=== PATIENT | female | born 1990 | race Two or more races ===

== ENCOUNTER 2018-05-09 11:52 | Emergency (ER) | payer OTHER ==
[~2018-05-09] VITALS: Ht 160 cm; Wt 84.0 kg
[2018-05-09] MEDS ORDERED: KETOROLAC 30 MG/1 ML ONE (12:27)
[2018-05-09] MEDS ORDERED: DIAZEPAM 5 MG TABLET ONE (12:27)
[2018-05-09] MEDS ORDERED: DIAZEPAM 5 MG/ML, 2ML IV ONE (12:30)
[2018-05-09] MEDS ORDERED: KETOROLAC 30 MG/1 ML IV ONE (12:30)
[2018-05-09] MEDS ORDERED: METHOCARBAMOL 1,000 MG in DEXTROSE 5% 100 ML IV ONE (13:00)
[2018-05-09] MEDS ORDERED: MORPHINE SULFATE 4 MG/ML, 1ML ONE (14:41)
[2018-05-09] MEDS ORDERED: MORPHINE SULFATE 4 MG/ML, 1ML IVPush ONE (15:00)
[2018-05-09 15:51] VITALS: BP 114/70
== END 2018-05-09 16:17 | disposition home or self-care (01) ==
LOC: ED 15:40
DX: S16.1XXA Strain of muscle, fascia and tendon at neck level, initial encounter (principal); E03.9 Hypothyroidism, unspecified; K21.9 Gastro-esophageal reflux disease without esophagitis; X58.XXXA Exposure to other specified factors, initial encounter; Y93.89 Activity, other specified; Y92.89 Other specified places as the place of occurrence of the external cause; Y99.8 Other external cause status
CPT/HCPCS: 71045; 72125; 93005; 96365; 96375; 99284; J1885; J2800